=== PATIENT | male | born 1950 | race Caucasian/White ===

== ENCOUNTER → 2019-04-23 | Outpatient (CLI) | payer OTHER | LOC: CAT 08:58 | DX: Z13.6 Encounter for screening for cardiovascular disorders (principal); I25.10 Atherosclerotic heart disease of native coronary artery without angina pectoris; E78.00 Pure hypercholesterolemia, unspecified ==

== ENCOUNTER → 2019-05-10 | Outpatient (CLI) | payer OTHER, MEDICARE | LOC: SJCVC 10:08 | DX: I44.0 Atrioventricular block, first degree (principal); I45.10 Unspecified right bundle-branch block; I25.10 Atherosclerotic heart disease of native coronary artery without angina pectoris; I10 Essential (primary) hypertension; E78.5 Hyperlipidemia, unspecified; E11.9 Type 2 diabetes mellitus without complications; I63.9 Cerebral infarction, unspecified; Z79.82 Long term (current) use of aspirin; Z79.899 Other long term (current) drug therapy ==

== ENCOUNTER → 2019-05-29 | Outpatient (CLI) | payer OTHER, MEDICARE | LOC: SJCVCIMAG 07:41 | DX: I08.3 Combined rheumatic disorders of mitral, aortic and tricuspid valves (principal); I45.19 Other right bundle-branch block; E78.5 Hyperlipidemia, unspecified; I11.9 Hypertensive heart disease without heart failure ==

== ENCOUNTER → 2019-06-06 | Outpatient (CLI) | payer OTHER, MEDICARE ==
[~2019-06-06] VITALS: Ht 180.3 cm; Wt 97.5 kg
[~2019-06-06] MED LIST: AMARYL4 MG PO; AMITRIPTYLINE100 MG PO; ASA81BEC PO; ASPIRIN EC325 M1 PO; COZAAR100 MG PO; HYDROXYCHLOROQ200 M1 PO; PLAQUENIL200 MG PO; PROTONIX40 M2 PO; SIMVASTATIN40 MG PO; VICTOZA0.6 MG/0.1 SUBQ
[2019-06-06 08:41] VITALS: BP 123/75
[2019-06-06 09:03] LABS: HEMATOCRIT 37.2 % (42.0-52.0); HEMOGLOBIN 12.5 gm/dL (14.0-18.0); MCH 30.4 pg (26.0-34.0); MCHC 33.5 g/dL (28.0-37.0); MCV 90.5 fL (80.0-100.0); RBC 4.11 mil/uL (4.50-6.00); RDW 13.1 % (10.5-14.5); WBC 4.7 thou/uL (4.0-11.0)
[2019-06-06 09:09] LABS: CALCIUM 8.8 mg/dL (8.5-10.1); CREATININE 1.5 mg/dL (0.7-1.3); POTASSIUM 4.6 mmol/L (3.5-5.1)
--- NOTE | 2019-06-06 14:30 | CATHLAB ---
[facility] [place] [address] INVASIVE PROCEDURE REPORT Name: HIRA GOFF Mary Room #: REG ANNA Allyson.#: [id number] Admission: 06/06/19 Attend Phys: Rickie East Discharge: Date of : 50 Report #: [id number] THIS REPORT FOR: cc: Scott Hudson MD, David P. MD Lammoglia, Francisco J. MD ~ APPROVED REPORT Study performed: 06/06/2019 10:54:07 Patient Details Patient Status: Out-Patient Room #: The patient is a 69 year-old male Event Personnel Rickie East Heat Engineering Teacher, Robin Paz RN, Risa Hamilton RTR Monitor, Karyna Osman RTR Scrub Procedures Performed Left Heart Cath w/or w/o Coronaries [id number] [facility] Art Access - R femoral artery* 15688 Initial Mod Sed Same Phys/QHP Gr5y [id number] Mod Sed Same Phys/QHP Ea 120627 Hemostasis with Manual pressure, supervision of conscious sedation Indication Positive stress test, Chest pain Risk Factors Hypercholesterolemia, Hypertension Procedure Narrative The patient was brought electively to the Cardiac Catheterization Laboratory and was prepped and draped in a sterile manner. The Right Groin^ was infiltrated with 1% Lidocaine subcutaneous anesthesia. A PINNACLE 4FR Sheath #[id number] sheath was inserted into the RFA^. Coronary angiography was performed using coronary diagnostic catheters. The right coronary system was accessed and visualized with a JR4 catheter. The left coronary system was accessed and visualized with a JL5 catheter. The left ventricle was accessed and visualized with a ANGLED PIGTAIL catheter. Hemostasis was obtained with manual pressure following sheath removal without any complications. There was no hematoma. Intraoperative Conscious Sedation [facility] [address] [place] [address] INVASIVE PROCEDURE REPORT Name: DENVERHIRA R Room #: REG [facility]#: [id number] Admission: 06/06/19 Attend Phys: Rickie Cox Discharge: Date of : 50 Report #: [id number] Sedation start time: 11:24 Case end Time: 12:02 Fluoro Time: 4.00 minutes Dose: DAP 7280.00 cGycm2 1194 mGy Contrast Type and Amount: Omnipaque 55 ml Coronary Angiography The patient's coronary anatomy is co- dominant. Diagnostic Cath Left Main Normal origin and caliber bifurcates left anterior descending left circumflex. Is evidence of epicardial calcifications but only mild distal irregularity of less than 20%. LAD Moderate caliber type II vessel which has evidence of extensive epicardial calcification his proximal third. The vessel continues in the anterior interventricular sulcus giving rise to septal and diagonal branches. It then tapers and terminates as a small bifurcating vessel at the apex. There appears to be some luminal irregularities of less than 50% proximal portion at the mid and distal appeared to be without significant diffuse or focal plaquing. Diagonal 1 Small-caliber vessel which is ostial narrowing which is less than 25% and continues in the anterolateral wall without significant high-grade lesions Circumflex Moderate caliber codominant vessel which gives rise to a small first marginal branch. This first marginal is free of high-grade disease. The circumflex and continues in the AV groove giving rise to a second marginal branch which is larger and bifurcates proximally as it courses on the lateral aspect of the left ventricle with luminal irregularities which are mild in the upper of the branches. It then proceeds posteriorly where he gives a posterior wall branch that courses along the posterior interventricular sulcus although no overt septal branches are seen OM1 Small-caliber vessel without significant high-grade lesions noted OM2 Moderate caliber bifurcating vessel with the superior branch having some lower irregularities in its distal portion but otherwise without high-grade lesions. This course and on the lateral aspect of the heart towards the apex Right Coronary Moderate to large caliber vessel of normal origin procedure gives rise to an early right atrial branch. It and at the acute margin small RV marginal branch rises which is free of high-grade disease. The RCA proper continues to the crux of the heart which gives rise to a branch has multiple branches including some septal associate spa director-appearing vessels but all her small-caliber [facility] [address] [place] [address] INVASIVE PROCEDURE REPORT Name: HIRA GOFF Room #: REG AMY Hay#: [id number] Admission: 06/06/19 Attend Phys: Rickie Cox Discharge: Date of : 50 Report #: [id number] including the PDA. No high-grade lesions are noted only luminal irregularities R PDA Small-caliber vessel multi branching with luminal irregularities no high-grade lesions are present Left Ventriculography Left Ventriculography was not performed. Hemodynamics The aortic pressure is 154/80 mmHg with a mean of 109 mmHg. The left ventricular pressure is 166/11 mmHg with a mean of mmHg. The left ventricular end diastolic pressure is 16 mmHg. Pullback from the left ventricle to the aorta revealed no gradient across the aortic valve. Conclusion 1. Coronary artery disease mild nonobstructive 2. Normal hemodynamics 3. Extensive epicardial coronary calcifications noted Recommendations Cardiac Risk Reduction Program Medical Therapy <ELECTRONICALLY SIGNED> By: Rickie East MD 06/06/19 1429 1429 1429 Rickie East MD /INF
== END | disposition home or self-care (01) ==
LOC: NUC 07:53
PROVIDERS: Internal Medicine
DX: R07.9 Chest pain, unspecified (principal); R94.39 Abnormal result of other cardiovascular function study; I25.10 Atherosclerotic heart disease of native coronary artery without angina pectoris; I10 Essential (primary) hypertension; E78.00 Pure hypercholesterolemia, unspecified; R92.1 Mammographic calcification found on diagnostic imaging of breast; E11.9 Type 2 diabetes mellitus without complications; E78.5 Hyperlipidemia, unspecified; Z98.890 Other specified postprocedural states; Z79.899 Other long term (current) drug therapy; Z82.49 Family history of ischemic heart disease and other diseases of the circulatory system; Z86.73 Personal history of transient ischemic attack (TIA), and cerebral infarction without residual deficits